=== PATIENT | male | born 1965 | race Caucasian/White ===

== ENCOUNTER 2019-04-26 16:56 | Emergency (ER) | payer SELFPAY ==
[~2019-04-26] VITALS: Ht 170.2 cm; Wt 92.2 kg
[2019-04-26 17:16] VITALS: Ht 170.2 cm; Wt 92.2 kg
[2019-04-26] MEDS ORDERED: HYDR25SU23 PR (19:40)
[2019-04-26 20:00] VITALS: BP 122/79; PULSE 59; RESP 16
--- NOTE | 2019-04-26 20:03 | ERD ---
ER Documentation Chief Complaint Chief Complaint rectal bleed x 4 days HPI During the patient's encounter translation services were utilized Language: Greenlandic Source: In person 53-year-old male no significant past medical history presents to the emergency room with less than 24 hours of intermittent rectal bleeding with stool. Mi nimal bleeding is noted. No hematemesis or melena. He denies history of NSAID abuse or alcohol abuse. A single episode of similar bleeding approximately 6 months ago. He has not seen a GI doctor or had a colonoscopy at the age of 52. He denies any generalized weakness or other bleeding or bruising. ROS All systems reviewed and are negative except as per history of present illness. Medications Home Meds Active Scripts Hydrocortisone Acetate (Anusol-Hc) 25 Mg Supp.rect, 1 SUPP VA QHS PRN for HEMORROID PAIN/ITCHING, #12 SUPP.RECT Prov:GERRY SHIPMAN MD 04/26/19 Allergies Allergies: Coded Allergies: No Known Allergy (Unverified , 04/26/19) PMhx/Soc Medical and Surgical Hx: pt denies Surgical Hx History of Surgery: No Anesthesia Reaction: No Hx Neurological Disorder: No Hx Respiratory Disorders: No Hx Cardiac Disorders: No Hx Psychiatric Problems: No Hx Miscellaneous Medical Probl: Yes (Rectal bleeding) Hx Alcohol Use: No Hx Substance Use: No Hx Tobacco Use: No Smoking Status: Never smoker FmHx Family History: No diabetes Physical Exam Vitals Vital Signs Date Temp Pulse Resp B/P (MAP) Pulse Ox O2 O2 Flow FiO2 Time Delivery Rate 04/26/19 99.0 68 16 154/78 98 17:16 (103) Physical Exam General: Well developed, well nourished, no acute distress Head: Normocephalic, atraumatic. Eyes: Pupils equally reactive, EOM intact ENT: Moist mucous membranes Neck: Supple, no lymphadenopathy Respiratory: Lungs clear bilaterally, no distress Cardiovascular: RRR, no murmurs, rubs, or gallops Abdominal: Soft, non-tender, non-distended, no peritoneal signs : Single external hemorrhoid, nonthrombosed, no stigmata of recent bleeding MSK: No edema, no unilateral swelling, 5/5 strength Neurologic: Alert and oriented, moving all extremities, normal speech, no focal weakness, no cerebellar signs Skin: No rash Psych: Normal mood Result Diagram: 04/26/19189904/26/191899 Results 24 hrs Laboratory Tests Test 04/26/19 19:00 White Blood Count 5.7 10^3/ul Red Blood Count 4.52 10^6/ul Hemoglobin 14.3 g/dl Hematocrit 42.4 % Mean Corpuscular Volume 93.8 fl Mean Corpuscular Hemoglobin 31.6 pg Mean Corpuscular Hemoglobin Concent 33.7 g/dl Red Cell Distribution Width 13.4 % Platelet Count 240 10^3/UL Mean Platelet Volume 10.2 fl Immature Granulocytes % 0.200 % Neutrophils % 50.9 % Lymphocytes % 35.9 % Monocytes % 8.5 % Eosinophils % 3.8 % Basophils % 0.7 % Nucleated Red Blood Cells % 0.0 /100WBC Immature Granulocytes # 0.010 10^3/ul Neutrophils # 2.9 10^3/ul Lymphocytes # 2.1 10^3/ul Monocytes # 0.5 10^3/ul Eosinophils # 0.2 10^3/ul Basophils # 0.0 10^3/ul Nucleated Red Blood Cells # 0.0 10^3/ul Prothrombin Time 12.1 Sec Prothrombin Time Ratio 0.9 INR International Normalized Ratio 0.89 Activated Partial Thromboplast Time 27.6 Sec Sodium Level 143 mmol/L Potassium Level 4.0 mmol/L Chloride Level 109 mmol/L Carbon Dioxide Level 25 mmol/L Anion Gap 9 Blood Urea Nitrogen 20 mg/dl Creatinine 0.91 mg/dl Est Glomerular Filtrat Rate mL/min > 60 mL/min Glucose Level 93 mg/dl Calcium Level 8.9 mg/dl Procedures/MDM LAB INTERPRETATION: I reviewed the laboratory testing and it shows [no evidence of acute process] MEDICAL DECISION MAKING: Rectal bleeding possibly secondary to hemorrhoids versus nonspecific lower GI bleeding. No signs or symptoms concerning for upper GI hemorrhage. Laboratory testing shows a normal hemoglobin. No signs or symptoms or stigmata of significant upper GI bleeding. Benign abdominal exam. Patient needs a colonoscopy and outpatient GI follow-up. Return precautions were discussed and understood. Patient is safe for outpatient management CONSULTATION: [None] DISPOSITION PLAN: The patient does not have an identifiable emergent medical condition that warrants inpatient hospitalization at this time. The patient is deemed safe for discharge with outpatient follow-up. We discussed follow up with the patient's primary care doctor within 24 to 48 hours as needed. We also discussed return to the emergency room for worsening symptoms or worsening condition. Outpatient referral: Gastroenterology Discharge Medications: Anusol Departure Diagnosis: Primary Impression: Rectal bleeding Additional Impression: External hemorrhoid Condition: Stable Patient Instructions: Rectal Bleed, Stable Referrals: KATHERINE BAUTISTA MD Additional Instructions: Llame al doctor nomhans sifuentes (Referral Sources) MAANA y alissa lisa EMY PARA DENTRO DE LISA SEMANA. Dgale a la secretaria que nosotros le instruimos hacer esta emy.Avise o llame si vazquez condicin se empeora antes de la emy. GERRY SHIPMAN MD Apr 26, 2019 20:03
== END 2019-04-26 21:26 | disposition home or self-care (01) ==
LOC: E/R 16:56
DX: K64.4 Residual hemorrhoidal skin tags (principal)
CPT/HCPCS: 36415; 80048; 85025; 85610; 85730; 99283